=== PATIENT | female | born 1975 ===

== ENCOUNTER 2017-12-31 09:25 | Emergency (ER) | payer OTHER ==
[~2017-12-31] VITALS: Ht 162.6 cm; Wt 80.7 kg
[2017-12-31] MEDS ORDERED: CLONAZEPAM2 MG (09:38)
[2017-12-31] MEDS ORDERED: SEROQUEL50 MG (09:39)
[2017-12-31] MEDS ORDERED: ELAVIR (09:40)
== END 2017-12-31 14:32 | disposition home or self-care (01) ==
LOC: ER 09:25
DX: R06.02 Shortness of breath (principal); F06.4 Anxiety disorder due to known physiological condition